=== PATIENT | male | born 1980 | race African-American/Black ===

== ENCOUNTER 2022-08-04 18:20 | Emergency (ER) | payer OTHER ==
[~2022-08-04] VITALS: Ht 177.8 cm; Wt 81.8 kg
[~2022-08-04 18:20] MED LIST: NOCURR
[2022-08-04] MEDS ORDERED: KETOROLAC TROMETHAMINE 30 MG/ML VIAL IM ONE (19:00)
[2022-08-04] MEDS ORDERED: LIDOCAINE 5% TRANSDERMAL PATCH TD ONE (19:00)
[2022-08-04] MEDS ORDERED: ACETAMINOPHEN 500 MG TABLET PO ONE (19:00)
[2022-08-04 19:36] VITALS: BP 130/79
[2022-08-04] MEDS ORDERED: IBUP-2070 PO (19:44)
[2022-08-04] MEDS ORDERED: LIDO700A15 TP (19:44)
== END 2022-08-04 19:51 | disposition home or self-care (01) ==
LOC: EMS 18:34
DX: S43.401A Unspecified sprain of right shoulder joint, initial encounter (principal); G89.29 Other chronic pain; M54.9 Dorsalgia, unspecified; F17.210 Nicotine dependence, cigarettes, uncomplicated; F12.90 Cannabis use, unspecified, uncomplicated; X58.XXXA Exposure to other specified factors, initial encounter; Y93.89 Activity, other specified; Y92.89 Other specified places as the place of occurrence of the external cause; Y99.8 Other external cause status
CPT/HCPCS: 99283; 73030; 96372; J1885